=== PATIENT | female | born 1990 | race African-American/Black ===

== ENCOUNTER 2017-02-25 01:12 | Emergency (ER) | payer SELFPAY ==
[2017-02-25 01:18] VITALS: BP 117/83; BMI 35.8
--- NOTE | 2017-02-25 02:03 | DR.GENAD ---
HPI - PCP Primary Care Physician: minnie - Complaint/Symptoms Chief Complaint:: short of breath - Nurses notes reviewed Nurses Notes Review: Yes - Source History Provided: Patient - Mode of Arrival Mode of Arrival: Ambulatory - Timing Onset of Chief Complaint: 02/24/17 Came on: Gradually - Duration Duration: Intermittent How lon Duration: Days - Location Location: chest - Severity Severity: Mild - Modifying Factors Worsens:: unknown - Associated Signs and Symptoms Associated Signs and Symptoms: none PMH - PMH Past Medical History: No Past Surgical History: No - Family History History of Family Medical Conditions: Yes Family Medical History: Hypertension - Social History Does patient currently use any type of tobacco product: No Have you used tobacco products in the last 12 months: No Type of Tobacco Use: None Does any household member use tobacco: No Alcohol Use: None Do you use any recreational Drugs:: No Lives With: Family Lives Where: Home - infectious screening In the last 2 months have you had wt loss of >10#?: NO Have you had fever, night sweats or hemotysis?: No Have you traveled outside the country in the last 6 months?: No Isolation: Standard ROS - Review of Systems Constitutional: No Symptoms Reported Eyes: No Symptoms Reported ENTM: No Symptoms Reported Respiratoy: Short of Breath Cardiovascular: No Symptoms Reported Gastrointestinal/Abdominal: No Symptoms Reported Genitourinary: No Symptoms Reported Neurological: No Symptoms Reported Musculoskeletal: No Symptoms Reported Integumentary: No Symptoms Reported Hematologic/Lymphatic: No Symptoms Reported Endocrine: No Symptoms Reported Psychiatric: No Symptoms Reported All Other Systems: Reviewed and Negative PE - Vital Signs Vitals: Temperature 98 F Pulse Rate 80 Respiratory Rate 18 Blood Pressure 117/83 O2 Sat by Pulse Oximetry 100 - General Limitations: No Limitations General Appearance: Alert, In No Apparent Distress - Head Head Exam: Normal Inspection - Eyes Eye exam: Normal Appearance, EOMI. negative: Scleral Icterus, Conjunctival Injection - ENT ENT Exam: Normal Exam External Ear Exam: Normal External Inspection Throat Exam: Normal Inspection - Neck Neck Exam: Normal Inspection, Full ROM, Trachea Midline - Chest Chest Inspection: Normal Inspection - Respiratory Respiratory Exam: Normal Lung Sounds Bilat. negative: Accessory Muscle Use, Respiratory Distress - Cardiovascular Cardiovascular Exam: Regular Rate - Extremities Extremities Exam: Normal Inspection - Back Back Exam: Normal Inspection - Neurologic Neurological Exam: Alert, Oriented X3, CN II-XII Intact - Psychiatric Psychiatric Exam: Normal Affect, Normal Mood - Skin Skin Exam: Intact, Normal Color ROR - Labs Reviewed Result Diagrams: 02/25/17 02:15 02/25/17 02:15 Laboratory: WBC 6.5 X10^3/uL (3.6-10.0) 02/25/17 02:15 RBC 3.99 X10^6/uL (3.5-5.4) 02/25/17 02:15 Hgb 11.2 g/dL (12.0-16.0) L 02/25/17 02:15 Hct 32.4 % (36.0-47.0) L 02/25/17 02:15 MCV 81.3 fL (80.0-100.0) 02/25/17 02:15 MCH 28.2 pg (27.0-34.0) 02/25/17 02:15 MCHC 34.7 g/dL (33.0-35.0) 02/25/17 02:15 RDW 12.8 % (11.6-16.5) 02/25/17 02:15 Plt Count 247 X10^3/uL (150.0-450.0) 02/25/17 02:15 MPV 9.0 fL (7.4-11.0) 02/25/17 02:15 Neut % 54.2 % (42.0-75.0) 02/25/17 02:15 Lymph % 37.2 % (21.0-51.0) 02/25/17 02:15 [place] % 6.3 % (0.0-13.0) 02/25/17 02:15 Eos % 1.5 % (0.9-2.9) 02/25/17 02:15 Baso % 0.8 % (0.2-1.0) 02/25/17 02:15 Neut # 3.5 x10^3/uL (2.2-4.8) 02/25/17 02:15 Lymph # 2.4 X10^3/uL (1.3-2.9) 02/25/17 02:15 [place] # 0.4 x10^3/uL (0.3-0.8) 02/25/17 02:15 Eos # 0.1 x10^3/uL (0.0-0.2) 02/25/17 02:15 Baso # 0.1 X10^3/uL (0.0-0.1) 02/25/17 02:15 Absolute Nucleated RBC 0.0 /100WBC 02/25/17 02:15 Sodium 142 mmol/L (136-145) 02/25/17 02:15 Corrected Sodium TNP 02/25/17 02:15 Potassium 3.4 mmol/L (3.5-5.1) L 02/25/17 02:15 Chloride 107 mmol/L (98-107) 02/25/17 02:15 Carbon Dioxide 27.4 mmol/L (21-32) 02/25/17 02:15 BUN 10 mg/dL (7-18) 02/25/17 02:15 Creatinine 0.91 mg/dL (0.55-1.02) 02/25/17 02:15 Est GFR (MDRD) Af Amer > 60 (>60) 02/25/17 02:15 Est GFR (MDRD) Non-Af > 60 (>60) 02/25/17 02:15 Glucose 87 mg/dL (65-99) 02/25/17 02:15 Calcium 8.8 mg/dL (8.5-10.1) 02/25/17 02:15 HCG, Qual Negative <10 mIU/mL 02/25/17 02:15 - XRAY XRAY Interpreted by: Self XRAY Findings: chest:normal - Diagnosis Discharge Problem: Anxiety Anemia Qualifiers: Anemia type: other cause Other causes of anemia: other cause, not classified Qualified Code(s): D64.89 - Other specified anemias - Discharge Plan Condition: Stable - Follow ups/Referrals Follow ups/Referrals: DANIKA REA [Primary Care Provider] - 3 days - Instructions
[2017-02-25 02:28] LABS: BASOPHILS # (AUTO) 0.1 X10^3/uL (0.0-0.1); BASOPHILS % (AUTO) 0.8 % (0.2-1.0); EOSINOPHILS # (AUTO) 0.1 x10^3/uL (0.0-0.2); EOSINOPHILS % (AUTO) 1.5 % (0.9-2.9); HEMATOCRIT 32.4 % (36.0-47.0); HEMOGLOBIN 11.2 g/dL (12.0-16.0); LYMPHOCYTES # (AUTO) 2.4 X10^3/uL (1.3-2.9); LYMPHOCYTES % (AUTO) 37.2 % (21.0-51.0); MEAN CORPUSCULAR HEMOGLOBIN 28.2 pg (27.0-34.0); MEAN CORPUSCULAR HGB CONC 34.7 g/dL (33.0-35.0); MEAN CORPUSCULAR VOLUME 81.3 fL (80.0-100.0); MONOCYTES # (AUTO) 0.4 x10^3/uL (0.3-0.8); MONOCYTES % (AUTO) 6.3 % (0.0-13.0); NEUTROPHILS # (AUTO) 3.5 x10^3/uL (2.2-4.8); NEUTROPHILS % (AUTO) 54.2 % (42.0-75.0); PLATELET COUNT 247 X10^3/uL (150.0-450.0); RED BLOOD COUNT 3.99 X10^6/uL (3.5-5.4); RED CELL DISTRIBUTION WIDTH 12.8 % (11.6-16.5); WHITE BLOOD COUNT 6.5 X10^3/uL (3.6-10.0)
[2017-02-25 02:31] LABS: BLOOD UREA NITROGEN 10 mg/dL (7-18); CALCIUM 8.8 mg/dL (8.5-10.1); CARBON DIOXIDE 27.4 mmol/L (21-32); CHLORIDE 107 mmol/L (98-107); CREATININE 0.91 mg/dL (0.55-1.02); GLUCOSE 87 mg/dL (65-99); SODIUM 142 mmol/L (136-145); eGFR BLACK RACES > 60 (>60); eGFR NON BLACK RACES > 60 (>60)
[2017-02-25 02:32] LABS: SERUM PREGNANCY TEST, QUAL NEGATIVE <10 mIU/mL
--- NOTE | 2017-02-25 05:58 | RAD ---
Chest PA and lateral Indication: Dyspnea. Comparison: April 01, 2012 radiograph. Findings: There is no pneumothorax, effusion or consolidation. Heart size is prominent. Impression: Prominent heart size, suggesting cardiomegaly. This may be technically accentuated. Foll owup with PA and lateral chest as needed. No other acute abnormality seen. Reported By:
== END 2017-02-25 03:34 | disposition home or self-care (01) ==
LOC: ER 01:12
DX: F41.8 Other specified anxiety disorders (principal); D64.89 Other specified anemias
CPT/HCPCS: 36415; 71020; 80048; 84703; 85025; 99283

== ENCOUNTER 2017-06-25 17:12 | Emergency (ER) | payer OTHER ==
[2017-06-25 17:16] VITALS: BP 126/89; BMI 37.1
--- NOTE | 2017-06-25 18:21 | DR.GENAD ---
HPI - PCP Primary Care Physician: Art REA - HPI Comment HPI Comment: PATIENTS SYMTOMS WORSE TODAY. SHE FELT INDIGESTION SYMTOMS WHICH DID NOT RESOLVE WITH GAS X. NO V/D OR DYSURIA. NO FEVER. ABDOMEN IS DISTENDED. - Complaint/Symptoms Chief Complaint Doctors Comments: CHEST AND ABDOMINAL PAIN TIMES 2 WEEKS WITH INCREASING SOB. Chief Complaint:: PT. STATES FOR 2 WEEKS SHE HAS BEEN EXPERIENCING SHORTNESS OF BREATH WHICH WORSENED TODAY. PT. ALSO STATES SHE HAD INDIGESTION OVER THE WEEKEND AND TOOK SOME GAS-X WHICH GAVE HER SOME RELIEF. PT. SAYS HER ABDOMEN IS DISTENED. - Nurses notes reviewed Nurses Notes Review: Yes - Source History Provided: Patient - Mode of Arrival Mode of Arrival: Ambulatory - Timing Onset of Chief Complaint: 06/11/17 Came on: Suddenly - Duration Duration: Constant Duration: Days - Severity Severity: Moderate PMH - PMH Past Medical History: No Past Surgical History: No Surgical History: No History - Family History History of Family Medical Conditions: Yes Family Medical History: Hypertension - Social History Does patient currently use any type of tobacco product: No Have you used tobacco products in the last 12 months: No Type of Tobacco Use: None Does any household member use tobacco: No Alcohol Use: None Do you use any recreational Drugs:: No Lives With: Family Lives Where: Home - infectious screening In the last 2 months have you had wt loss of >10#?: NO Have you had fever, night sweats or hemotysis?: No Have you traveled outside the country in the last 6 months?: No Isolation: Standard ROS - Review of Systems Constitutional: Weakness, Fatigue. negative: Chills, Fever Eyes: negative: Eye Pain, Discharge ENTM: negative: Ear Pain, Nose Discharge, Nose Congestion, Throat Pain Respiratoy: Short of Breath. negative: Productive Cough, Non-Productive Cough, Wheezing, Hemoptysis Cardiovascular: Chest Pain Gastrointestinal/Abdominal: Abdominal Pain, Nausea Genitourinary: No Symptoms Reported. negative: Dysuria, Frequency, Hematuria Neurological: Weakness. negative: Headache, Dizziness Musculoskeletal: negative: Joint Pain, Joint Swelling, Muscle Pain Integumentary: No Symptoms Reported Hematologic/Lymphatic: No Symptoms Reported Endocrine: No Symptoms Reported All Other Systems: Reviewed and Negative PE - Vital Signs Vitals: Temperature 98.3 F Pulse Rate 86 Respiratory Rate 17 Blood Pressure 126/89 O2 Sat by Pulse Oximetry 95 - General Limitations: No Limitations General Appearance: Alert - Head Head Exam: Normal Inspection - Eyes Eye exam: Normal Appearance - ENT ENT Exam: Normal External Ear Exam External Ear Exam: Normal External Inspection TM/Canal Exam: Bilateral Normal Nose Exam: Normal Nose Exam Mouth Exam: Normal Inspection Throat Exam: Normal Inspection - Neck Neck Exam: Normal Inspection - Chest Chest Inspection: Symmetric Chest Wall Rise - Respiratory Respiratory Exam: Normal Lung Sounds Bilat Respiratory Exam: Bilateral Clear to Auscultation - Cardiovascular Cardiovascular Exam: Regular Rate, Normal Rhythm, Normal Heart Sounds - Abdominal Exam Abdominal Exam: Normal Bowel Sounds, Soft, Distention Abdominal Tenderness: Diffuse, Moderate - Extremities Extremities Exam: Normal Inspection - Back Back Exam: Normal Inspection - Neurologic Neurological Exam: Alert, Oriented X3 - Psychiatric Psychiatric Exam: Normal Affect, Normal Mood - Skin Skin Exam: Normal Color MDM - Additional Information Additional Information Obtained From: Family - Differential Diagnosis Differential Diagnosis: CHEST PAIN, ABDOMINAL PAIN, SOB, PE, PNEUMONIA, [place] Course - Treatment Treatment: SEE ORDERS. - Education/Counseling Education/Counseling: Patient, Education Educated On: Diagnosis, Needs for Follow Up ROR - Labs Reviewed Laboratory Results Reviewed?: Yes Result Diagrams: 06/25/17 18:32 06/25/17 18:32 Laboratory: WBC 6.2 X10^3/uL (3.6-10.0) 06/25/17 18:32 RBC 4.44 X10^6/uL (3.5-5.4) 06/25/17 18:32 Hgb 12.4 g/dL (12.0-16.0) 06/25/17 18:32 Hct 36.4 % (36.0-47.0) 06/25/17 18:32 MCV 82.0 fL (80.0-100.0) 06/25/17 18:32 MCH 27.9 pg (27.0-34.0) 06/25/17 18:32 MCHC 34.0 g/dL (33.0-35.0) 06/25/17 18:32 RDW 13.0 % (11.6-16.5) 06/25/17 18:32 Plt Count 266 X10^3/uL (150.0-450.0) 06/25/17 18:32 MPV 8.7 fL (7.4-11.0) 06/25/17 18:32 Neut % 57.3 % (42.0-75.0) 06/25/17 18:32 Lymph % 33.2 % (21.0-51.0) 06/25/17 18:32 [place] % 5.8 % (0.0-13.0) 06/25/17 18:32 Eos % 3.0 % (0.9-2.9) H 06/25/17 18:32 Baso % 0.7 % (0.2-1.0) 06/25/17 18:32 Neut # 3.6 x10^3/uL (2.2-4.8) 06/25/17 18:32 Lymph # 2.1 X10^3/uL (1.3-2.9) 06/25/17 18:32 [place] # 0.4 x10^3/uL (0.3-0.8) 06/25/17 18:32 Eos # 0.2 x10^3/uL (0.0-0.2) 06/25/17 18:32 Baso # 0.0 X10^3/uL (0.0-0.1) 06/25/17 18:32 Absolute Nucleated RBC 0.1 /100WBC 06/25/17 18:32 D-Dimer 253 ng/mL (0-400) 06/25/17 18:32 Sodium 140 mmol/L (136-145) 06/25/17 18:32 Corrected Sodium 141 mmol/L (136-145) 06/25/17 18:32 Potassium 3.5 mmol/L (3.5-5.1) 06/25/17 18:32 Chloride 104 mmol/L (98-107) 06/25/17 18:32 Carbon Dioxide 29.7 mmol/L (21-32) 06/25/17 18:32 BUN 13 mg/dL (7-18) 06/25/17 18:32 Creatinine 1.05 mg/dL (0.55-1.02) H 06/25/17 18:32 Est GFR (MDRD) Af Amer > 60 (>60) 06/25/17 18:32 Est GFR (MDRD) Non-Af > 60 (>60) 06/25/17 18:32 Glucose 136 mg/dL (65-99) H 06/25/17 18:32 Calcium 8.9 mg/dL (8.5-10.1) 06/25/17 18:32 Corrected Calcium TNP 06/25/17 18:32 Total Bilirubin 0.30 mg/dL (0.2-1.0) 06/25/17 18:32 AST 13 Units/L (15-37) L 06/25/17 18:32 ALT 14 Units/L (12-78) 06/25/17 18:32 Alkaline Phosphatase 80 Units/L (46-116) 06/25/17 18:32 Creatine Kinase 96 Units/L (26-192) 06/25/17 18:32 CK-MB (CK-2) < 1.0 ng/mL (0-4.0) 06/25/17 18:32 CK/CKMB % Calc 1.0 % (<4) 06/25/17 18:32 Troponin I < 0.02 ng/mL (0-1.5) 06/25/17 18:32 B-Natriuretic Peptide < 5.0 pg/mL (0-79) 06/25/17 18:32 Total Protein 8.1 g/dL (6.4-8.2) 06/25/17 18:32 Albumin 3.5 g/dL (3.4-5.0) 06/25/17 18:32 Globulin 4.6 g/dL (2.5-4.5) H 06/25/17 18:32 Albumin/Globulin Ratio 0.8 Ratio (1.1-2.1) L 06/25/17 18:32 Amylase 76 Units/L (25-115) 06/25/17 18:32 Lipase 126 Units/L (73-393) 06/25/17 18:32 HCG, Qual Negative <10 mIU/mL 06/25/17 18:32 Specimen Type Clean catch urine 06/25/17 18:38 Urine Color Yellow (YELLOW) 06/25/17 18:38 Urine Appearance Clear (CLEAR) 06/25/17 18:38 Urine pH 6.5 (5.0 - 8.0) 06/25/17 18:38 Ur Specific Umpire 1.020 (1.000-1.030) 06/25/17 18:38 Urine Protein Negative (NEGATIVE) 06/25/17 18:38 Urine Glucose (UA) Negative (NEGATIVE) 06/25/17 18:38 Urine Ketones Negative (NEGATIVE) 06/25/17 18:38 Urine Occult Blood Negative (NEGATIVE) 06/25/17 18:38 Urine Nitrite Negative (NEGATIVE) 06/25/17 18:38 Urine Bilirubin Negative (NEGATIVE) 06/25/17 18:38 Urine Urobilinogen 1+ (NORMAL) 06/25/17 18:38 Ur Leukocyte Esterase Negative (NEGATIVE) 06/25/17 18:38 Urine RBC None seen /HPF (NEGATIVE) 06/25/17 18:38 Urine WBC 0-1 /HPF (NEGATIVE) 06/25/17 18:38 Ur Squamous Epith Cells Moderate /HPF (NEGATIVE) 06/25/17 18:38 Urine Bacteria Trace /HPF (NEGATIVE) 06/25/17 18:38 Ur Culture Indicated? No/not indicated 06/25/17 18:38 H. pylori IgG Antibody Positive (NEGATIVE) A 06/25/17 18:32 - XRAY XRAY Interpreted by: Radiologist XRAY Findings: REPORT DISCUSS WITH PATIENT. - EKG Rhythm: NSR (EKG NOTED) - Diagnosis Discharge Problem: Helicobacter pylori antibody positive Chest pain Qualifiers: Chest pain type: intercostal pain Qualified Code(s): R07.82 - Intercostal pain Abdominal pain Qualifiers: Abdominal location: generalized Qualified Code(s): R10.84 - Generalized abdominal pain - Discharge Plan Disposition: HOME, SELF-CARE Condition: Stable Prescriptions: Lansoprazole/Amoxiciln/Clarith [PrevPac 14-day pack] 1 dose PO BID #1 pkg Ondansetron [Zofran ODT 8 mg] 8 mg PO Q8H PRN #15 tab PRN Reason: Nausea/Vomiting Ranitidine HCl [ZANTAC TAB 150 MG *] 150 mg PO BID #60 tab - Follow ups/Referrals Follow ups/Referrals: DANIKA REA [Primary Care Provider] - 3 days - Instructions Instructions: Abdominal Pain, Adult, [id number], Chest Pain Observation Additional Instructions: RETURN TO ED IF WORSE.
[2017-06-25 18:49] LABS: BILIRUBIN,URINE NEGATIVE (NEGATIVE); BLOOD/HEMOGLOBIN,URINE NEGATIVE (NEGATIVE); GLUCOSE, URINE NEGATIVE (NEGATIVE); KETONES,URINE NEGATIVE (NEGATIVE); LEUKOCYTE ESTERASE ,URINE NEGATIVE (NEGATIVE); NITRITES,URINE NEGATIVE (NEGATIVE); PH,URINE 6.5 (5.0 - 8.0); PROTEIN,URINE NEGATIVE (NEGATIVE); UROBILINOGEN,URINE 1+ (NORMAL)
[2017-06-25 18:53] LABS: BASOPHILS % (AUTO) 0.7 % (0.2-1.0); EOSINOPHILS # (AUTO) 0.2 x10^3/uL (0.0-0.2); HEMATOCRIT 36.4 % (36.0-47.0); HEMOGLOBIN 12.4 g/dL (12.0-16.0); LYMPHOCYTES # (AUTO) 2.1 X10^3/uL (1.3-2.9); LYMPHOCYTES % (AUTO) 33.2 % (21.0-51.0); MEAN CORPUSCULAR HEMOGLOBIN 27.9 pg (27.0-34.0); MEAN PLATELET VOLUME 8.7 fL (7.4-11.0); MONOCYTES # (AUTO) 0.4 x10^3/uL (0.3-0.8); MONOCYTES % (AUTO) 5.8 % (0.0-13.0); NEUTROPHILS # (AUTO) 3.6 x10^3/uL (2.2-4.8); NEUTROPHILS % (AUTO) 57.3 % (42.0-75.0); PLATELET COUNT 266 X10^3/uL (150.0-450.0); RED BLOOD COUNT 4.44 X10^6/uL (3.5-5.4); WHITE BLOOD COUNT 6.2 X10^3/uL (3.6-10.0)
[2017-06-25 18:55] LABS: SERUM PREGNANCY TEST, QUAL NEGATIVE <10 mIU/mL
[2017-06-25 18:56] LABS: APPEARANCE,URINE CLEAR (CLEAR); BACTERIA,URINE TRACE /HPF (NEGATIVE); COLOR,URINE YELLOW (YELLOW); RBC,URINE NONE SEEN /HPF (NEGATIVE); SQUAMOUS EPITHELIAL CELL,UR MODERATE /HPF (NEGATIVE)
[2017-06-25 19:01] LABS: B-TYPE NATRIURETIC PEPTIDE < 5.0 pg/mL (0-79)
[2017-06-25 19:02] LABS: BLOOD UREA NITROGEN 13 mg/dL (7-18); CALCIUM 8.9 mg/dL (8.5-10.1); CARBON DIOXIDE 29.7 mmol/L (21-32); CHLORIDE 104 mmol/L (98-107); COR NA(FOR HYPERGLY) 141 mmol/L (136-145); CREATININE 1.05 mg/dL (0.55-1.02); SODIUM 140 mmol/L (136-145); TROPONIN I < 0.02 ng/mL (0-1.5); eGFR BLACK RACES > 60 (>60); eGFR NON BLACK RACES > 60 (>60)
[2017-06-25 19:06] LABS: ALANINE AMINOTRANSFERASE 14 Units/L (12-78); ALBUMIN 3.5 g/dL (3.4-5.0); ALKALINE PHOSPHATASE 80 Units/L (46-116); AMYLASE 76 Units/L (25-115); ASPARTATE AMINO TRANSFERASE 13 Units/L (15-37); CREATINE KINASE 96 Units/L (26-192); CREATINE KINASE MB < 1.0 ng/mL (0-4.0); LIPASE 126 Units/L (73-393); TOTAL PROTEIN 8.1 g/dL (6.4-8.2)
--- NOTE | 2017-06-25 20:15 | RAD ---
ACUTE ABDOMINAL SERIES CLINICAL HISTORY: 27-year-old female with shortness of breath and indigestion for 2 weeks. COMPARISON: Chest radiograph 02/25/2017.. FINDINGS: PA chest radiograph demonstrates normal cardiopericardial silhouette. There is no focal consolidation , pleural effusion or pneumothorax. Pulmonary vascularity is normal. Abdominal radiographs demonstrate a nonobstructive bowel gas pattern. Gas and stool are seen througho ut the colon. There is no small bowel distention. There is no radiographic evidence of pneumoperitone um. Imaged osseous structures are intact. Soft tissues are unremarkable. IMPRESSION: 1. No acute cardiopulmonary process. 2. Nonobstructive bowel gas pattern without radiographic evidence of pneumoperitoneum. Reported By:
[2017-06-25] MEDS ORDERED: ZOFRAN TAB 4 MG PO ONE (20:22)
[2017-06-25] MEDS ORDERED: ZANTAC PO ONE ×2 (20:23)
[2017-06-25] MEDS ORDERED: ZOFRAN TAB 4 MG ONE (20:24)
== END 2017-06-25 20:39 | disposition home or self-care (01) ==
LOC: ER 17:32
DX: R10.84 Generalized abdominal pain (principal); R07.82 Intercostal pain; B96.81 Helicobacter pylori [H. pylori] as the cause of diseases classified elsewhere
CPT/HCPCS: 36415; 74022; 80053; 81001; 82150; 82550; 82553; 83690; 83880; 84484; 84703; 85025; 85378; 86677; 93005; 93010; 99283; S0181